=== PATIENT | male | born 2000 | race Caucasian/White ===

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

== ENCOUNTER 2018-01-18 19:50 | Emergency (ER) | payer BC ==
--- NOTE | 2018-01-18 20:27 | RAD ---
HISTORY: Right-sided chest pain, history of pneumothorax COMPARISONS: June 02, 2016 VIEWS: 4: Frontal dual-energy and lateral views of the chest. FINDINGS: CARDIOMEDIASTINAL SILHOUETTE: The cardiomediastinal silhouette is normal. TETE: The tete are normal. PLEURA: The costophrenic angles are sharp. No pleural abnormalities are noted. LUNG PARENCHYMA: There is postsurgical change to the upper lungs bilaterally. ABDOMEN: The upper abdomen is clear. There is no subphrenic gas. BONES AND SOFT TISSUES: No bone or soft tissue abnormalities are noted. OTHER: None. IMPRESSION: NO ACTIVE CARDIOPULMONARY DISEASE.
[2018-01-18 20:28] VITALS: BP 117/55
--- NOTE | 2018-01-18 21:47 | UC ---
General HPI - HPI Summary HPI Summary: 17 yo h/o sponataneous PTX 1.5 yrs ago ( 100% on left and 25% on right) p/w sharp right upper chest pain while cooking today w/o SPB, but pain similar to the pain of previous PTX - History of Current Complaint Chief Complaint: UCChestPain Stated Complaint: UPPER LUNG PAIN Time Seen by Provider: 01/18/18 21:04 Hx Obtained From: Patient Onset/Duration: Sudden Onset Onset Severity: Moderate Current Severity: Mild Pain Intensity: 3 - Allergy/Home Medications Allergies/Adverse Reactions: Allergies Allergy/AdvReac Type Severity Reaction Status Date / Time No Known Allergies Allergy Verified 01/18/18 20:29 Home Medications: Home Medications Isotretinoin [Myorisan] 01/18/18 [History] Isotretinoin [Myorisan] 1 tab PO BID 01/18/18 [History Confirmed 01/18/18] PMH/Surg Hx/FS Hx/Imm Hx - Additional Past Medical History Additional PMH: PTX Previously Healthy: Yes - Surgical History Surgical History: Yes Surgery Procedure, Year, and Place: FX left humerus AT AGE 2 - Family History Known Family History: Negative: Hypertension, Diabetes - Social History Alcohol Use: None Substance Use Type: None Smoking Status (MU): Never Smoked Tobacco - Immunization History Most Recent Influenza Vaccination: unknown - did not recieve this flu season Most Recent Pneumonia Vaccination: never Vaccination Up to Date: Yes Review of Systems Constitutional: Negative Skin: Negative Eyes: Negative ENT: Negative Respiratory: Other - right upper chest pain Cardiovascular: Negative Gastrointestinal: Negative Genitourinary: Negative Motor: Negative Neurovascular: Negative Musculoskeletal: Negative Neurological: Negative Psychological: Negative All Other Systems Reviewed And Are Negative: Yes Physical Exam Triage Information Reviewed: Yes Appearance: Well-Appearing Vital Signs: Initial Vital Signs Temp 37.4 C 01/18/18 20:23 Pulse 97 01/18/18 20:23 Resp 16 01/18/18 20:23 BP 117/55 01/18/18 20:23 Pulse Ox 99 01/18/18 20:23 Eye Exam: Normal ENT Exam: Normal Dental Exam: Normal Neck exam: Normal Neck: Positive: 1 Respiratory Exam: Normal Respiratory: Positive: Lungs clear - and equal B/L Cardiovascular Exam: Normal Abdominal Exam: Normal Musculoskeletal Exam: Normal Neurological Exam: Normal Psychological Exam: Normal Skin Exam: Normal Course/Dx - Course Course Of Treatment: CXR neg for PTX, advised pulm consult and to r/o blebs and other occult causes of PTX, if pain persists,advised CT chest - Differential Dx - Multi-Symptom Provider Diagnoses: right upper chest pain Discharge - Discharge Plan Condition: Stable Disposition: HOME Patient Education Materials: Spontaneous Pneumothorax (ED) Referrals: Sony Vasquez MD [Primary Care Provider] - Additional Instructions: please follow up with a unscrambler and if pain persists go to ER for further evaluation
== END 2018-01-18 21:45 | disposition home or self-care (01) ==
LOC: UCEAST 19:50
DX: R07.89 Other chest pain (principal)
CPT/HCPCS: 71046; 99211; G0463

== ENCOUNTER 2019-01-05 17:59 | Emergency (ER) | payer BC ==
[2019-01-05 18:11] VITALS: BP 109/60
--- NOTE | 2019-01-05 18:13 | UC ---
Abdominal Pain Male HPI - HPI Summary HPI Summary: 18-year-old male comes to clinic with a chief complaint of abdominal pain. Started yesterday. It has gotten worse as the day goes on. Pain primarily is epigastric and periumbilical. Patient's nauseous he does not feel like eating. He did vomit one time today. Pain is worse when he stands up and moves around. The pain is constant it's about a 4 out of 10 now. Pain also gets worse with sitting when he stands up. He reports he had a normal bowel movement this morning. No blood in the stool. No diarrhea. Reports normal urination. He has had some chills. No prior abdominal surgeries. - History of Current Complaint Chief Complaint: UCGI Stated Complaint: DIZZINESS AND VOMITING Time Seen by Provider: 01/05/19 18:00 Pain Intensity: 4 - Allergies/Home Medications Allergies/Adverse Reactions: Allergies Allergy/AdvReac Type Severity Reaction Status Date / Time No Known Allergies Allergy Verified 01/05/19 18:11 Home Medications: Home Medications NK [No Home Medications Reported] 01/05/19 [History Confirmed 01/05/19] PMH/Surg Hx/FS Hx/Imm Hx Previously Healthy: Yes - PNEUMOTHORAX X 2 - Surgical History Surgical History: Yes Surgery Procedure, Year, and Place: FX left humerus AT AGE 2 - Family History Known Family History: Negative: Hypertension, Diabetes - Social History Alcohol Use: None Substance Use Type: None Smoking Status (MU): Never Smoked Tobacco - Immunization History Most Recent Influenza Vaccination: unknown - did not recieve this flu season Most Recent Pneumonia Vaccination: never Vaccination Up to Date: Yes Review of Systems All Other Systems Reviewed And Are Negative: Yes Constitutional: Positive: Chills, Other - LIGHTHEADEDNESS Skin: Positive: Negative Eyes: Positive: Negative ENT: Positive: Negative Respiratory: Positive: Negative Cardiovascular: Positive: Negative Gastrointestinal: Positive: Abdominal Pain, Vomiting, Nausea Genitourinary: Positive: Negative Motor: Positive: Negative Neurovascular: Positive: Negative Musculoskeletal: Positive: Negative Neurological: Positive: Negative Psychological: Positive: Negative Is Patient Immunocompromised?: No Physical Exam Triage Information Reviewed: Yes Appearance: Well-Nourished, Ill-Appearing - MILD, Pain Distress - MILD Vital Signs: Initial Vital Signs Temp 99 F 01/05/19 18:01 Pulse 115 01/05/19 18:01 Resp 14 01/05/19 18:01 BP 109/60 01/05/19 18:01 Pulse Ox 96 01/05/19 18:01 Vital Signs Reviewed: Yes Eye Exam: Normal Eyes: Positive: Conjunctiva Clear ENT: Positive: Pharynx normal Neck exam: Normal Neck: Positive: Supple Respiratory: Positive: Lungs clear, Normal breath sounds, No respiratory distress Cardiovascular: Positive: Tachycardia Abdomen Description: Positive: Other: - TENDER TO PALPATION MIDLINE JUST ABOVE THE UMBILICUS Bowel Sounds: Positive: Present Musculoskeletal Exam: Normal Musculoskeletal: Positive: Strength Intact, ROM Intact Neurological Exam: Normal Neurological: Positive: Alert, Muscle Tone Normal Psychological Exam: Normal Psychological: Positive: Normal Response To Family, Age Appropriate Behavior Skin Exam: Normal Diagnostics - EKG Cardiac Rate: Tachycardia - AT 182 Cardiac Rhythm: Sinus: Normal - 109BPM EKG Comparison: Other - RBBB, EARLY REPOL Abd Pain Male Course/Dx - Course Course Of Treatment: Due to the persistence of the abdominal pain it's severity and the near syncopal episodes I recommended further evaluation emergency department to the patient and his mother. They preferred to go by POV. - Differential Dx/Clinical Impression Provider Diagnosis: Abdominal pain, Near syncope Discharge - Sign-Out/Discharge Documenting (check all that apply): Patient Departure All imaging exams completed and their final reports reviewed: No Studies - Discharge Plan Condition: Stable Disposition: HOME-RECOMMEND TO ED Referrals: Sony Vasquez MD [Primary Care Provider] - Additional Instructions: GO DIRECTLY TO THE EMERGENCY DEPARTMENT FOR FURTHER EVALUATION OF YOUR ABDOMINAL PAIN AND NEAR SYNCOPE. - Billing Disposition and Condition Condition: STABLE Disposition: Home-Recommend to ED
== END 2019-01-05 18:25 | disposition home health service (06) ==
LOC: UCEAST 17:59
DX: R55 Syncope and collapse (principal); R10.33 Periumbilical pain; R10.13 Epigastric pain; R11.2 Nausea with vomiting, unspecified
CPT/HCPCS: 99212; G0463

== ENCOUNTER 2019-01-05 18:36 | Emergency (ER) | payer BC ==
[2019-01-05] MEDS ORDERED: NS 0.9% 1000 ML** 1,000 ML IV ONE (19:05)
--- NOTE | 2019-01-05 19:06 | ED ---
Abdominal Pain/Male - HPI Summary HPI Summary: The patient is a 18 y/o M presenting to [facility] accompanied by mother with a chief complaint of epigastric pain starting last night and persisting into today. He states that he felt okay yesterday, but then had sudden onset discomfort that has been constantly dull with intermittent episodes of severity , although his current pain is rated 3-4/10. During the day today, he has been mostly lying in bed because when he stands up, especially for a long period of time, he becomes dizzy. There are no other factors that aggravate the pain. He additionally reports that he has had a decreased appetite with nausea and has had one episode of vomiting that seemed to somewhat alleviate his pain. He denies diarrhea or changes to BM (normal today). Per mother, the patient had orthostatic hypotension and tachycardia; they also presented to Urgent Care, who suggested that the patient visits the ED for a workup. On his way here, he states that he was felt okay on the drive. No abd surgery. Hx of mechanical thoradesis in 2014. No current medications, but recently ended prescription for accutane 6 months ago. - History of Current Complaint Chief Complaint: EDAbdPain Stated Complaint: DIZZINESS/ABD PAIN Time Seen by Provider: 01/05/19 18:54 Hx Obtained From: Patient Onset/Duration: Sudden Onset, Lasting Hours - starting last night and persisting into today, Still Present Timing: Constant - dull, Intermittent - severe epsiodes, Lasting Hours Severity Initially: Moderate Severity Currently: Moderate Pain Intensity: 4 Pain Scale Used: 0-10 Numeric Location: Epigastric Radiates: No Character: Other: - discomfort Aggravating Factor(s): Other: - standing up causes dizziness Alleviating Factor(s): Vomiting Associated Signs And Symptoms: Positive: Nausea, Vomiting - one episode, Other - POSITIVE: decreased appetite, dizziness; NEGATIVE: changes in BM. Negative: Diarrhea - Allergies/Home Medications Allergies/Adverse Reactions: Allergies Allergy/AdvReac Type Severity Reaction Status Date / Time No Known Allergies Allergy Verified 01/05/19 18:48 PMH/Surg Hx/FS Hx/Imm Hx Endocrine/Hematology History: Denies: Hx Diabetes, Hx Thyroid Disease Cardiovascular History: Denies: Hx Congestive Heart Failure, Hx Hypertension, Hx Pacemaker/ICD Comment Only: Other Cardiovascular Problems/Disorders - MURMUR Respiratory History: Denies: Hx Asthma, Hx Chronic Obstructive Pulmonary Disease (COPD), Other Respiratory Problems/Disorders GI History: Denies: Hx Ulcer Sensory History: Reports: Hx Contacts or Glasses Denies: Hx Deafness Opthamlomology History: Reports: Hx Contacts or Glasses Denies: Hx Legally Blind EENT History: Denies: Hx Deafness - Surgical History Surgery Procedure, Year, and Place: FX left humerus AT AGE 2 Hx Anesthesia Reactions: No Infectious Disease History: No Infectious Disease History: Denies: Hx Hepatitis, Hx Human Immunodeficiency Virus (HIV), Traveled Outside the [place] in Last 30 Days - Family History Known Family History: Negative: Hypertension, Diabetes - Social History Occupation: Student Alcohol Use: None Substance Use Type: Reports: None Hx Tobacco Use: No Smoking Status (MU): Never Smoked Tobacco Review of Systems Positive: Abdominal Pain - dull constant pain but intermittently severe in the epigastric region, Vomiting - one episode, Nausea, Other - POSITIVE: decreased appetite; NEGATIVE: changes in BM. Negative: Diarrhea Neurological: Other - dizziness All Other Systems Reviewed And Are Negative: Yes Physical Exam - Summary Physical Exam Summary: Appearance: Well-appearing, Well-nourished, lying in bed comfortably Skin: Warm, dry, no obvious rash Eyes: sclera anicteric, no conjunctival pallor ENT: mucous membranes moist, pharynx appears normal Neck: Supple, nontender Respiratory: Clear to auscultation, no signs of respiratory distress Cardiovascular: Normal S1, S2. No murmurs. Normal distal pulses in tibial and radial bilaterally. Abdomen: Soft, nontender, normal active bowel sounds present Musculoskeletal: Normal, Strength/ROM Intact Neurological: A&Ox3, awake and alert, mentation is normal, speech is fluent and appropriate Psychiatric: affect is normal, does not appear anxious or depressed Triage Information Reviewed: Yes Vital Signs On Initial Exam: Initial Vitals Temp Pulse Resp BP Pulse Ox 99 F 116 16 108/71 98 01/05/19 18:43 01/05/19 18:43 01/05/19 18:43 01/05/19 18:43 01/05/19 18:43 Vital Signs Reviewed: Yes Diagnostics - Vital Signs Vital Signs Temp Pulse Resp BP Pulse Ox 01/05/19 18:43 99 F 116 16 108/71 98 - Laboratory Result Diagrams: 01/05/19 19:14 01/05/19 19:14 Lab Statement: Any lab studies that have been ordered have been reviewed, and results considered in the medical decision making process. - Radiology CXR Radiology Interpretation Completed By: Radiologist Summary of Radiographic Findings: No acute pathology. ED physician has reviewed this report. - CT Abd/Pel CT CT Interpretation Completed By: Radiologist Summary of CT Findings: 1. Stable mild prominence of the right renal pelvis. No visible renal or ureteral calculi at and no obvious inflammatory change of the kidneys. 2. The urinary bladder is unremarkable. 3. No other acute CT pathology. ED physician has reviewed this report. Re-Evaluation - Re-Evaluation First Eval Re-Evaluation Time: 20:00 Change: Unchanged Comment: I spoke with the patient and his mother concerning UA results. Second Eval Re-Evaluation Time: 22:40 Change: Improved Comment: I spoke with the patient concerning CXR and CT results. His pain has improved. We discussed discharge home. Abdominal Pain Male Course/Dx - Course Course Of Treatment: The patient is a 18 y/o M presenting to [facility] accompanied by mother with a chief complaint of epigastric pain starting last night and persisting into today. He states that he felt okay yesterday, but then had sudden onset discomfort that has been constantly dull with intermittent episodes of severity. He additionally reports dizziness, decreased appetite, nausea, and one episode of vomiting that seemed to somewhat alleviate his pain. He denies diarrhea or changes to BM. No abd surgery. Upon physical exam, the patient exhibited no acute abnormalities. In the ED course, the patient was administered Ns and Omnipaque contrast. Bloodwork shows elevated CRP and decreased lipase. UA reveals blood and bacteria. CXR shows no acute process. Abd /Pel CT is negative. He is diagnosed with abdominal pain. He will be discharged home with follow up with PCP as needed. He agrees with this plan and understands the need for return to the ED for any new or worsening symptoms. - Diagnoses Provider Diagnoses: Acute abdominal pain Discharge - Sign-Out/Discharge Documenting (check all that apply): Patient Departure - Patient will be discharged home. Patient Received Moderate/Deep Sedation with Procedure: No - Discharge Plan Condition: Good Disposition: HOME Patient Education Materials: Acute Abdominal Pain (ED) Referrals: Sony Vasquez MD [Primary Care Provider] - If Needed Additional Instructions: Follow up with primary care physician as needed. Return to the emergency department for any new or worsening symptoms. - Billing Disposition and Condition Condition: GOOD Disposition: Home - Attestation Statements Document Initiated by Dago: Yes Documenting Yuryibe: Olivia Hanson Provider For Whom Dago is Documenting (Include Credential): Dr. Hernan Rodas MD Scribe Attestation: Olivia Juarez scribed for Dr. Hernan Rodas MD on 01/06/19 at 0502. Scribe Documentation Reviewed: Yes Provider Attestation: The documentation as recorded by the Olivia kent accurately reflects the service I personally performed and the decisions made by me, Dr. Hernan Rodas MD Status of Scribe Document: Viewed
[2019-01-05 19:22] LABS: ABS Basophils 0 10^3/ul (0-0.2); ABS Eosinophils 0 10^3/ul (0-0.6); ABS Lymphocytes 0.4 10^3/ul (1.0-4.8); ABS Monocytes 0.6 10^3/ul (0-0.8); ABS Neutrophils 6.5 10^3/ul (1.5-7.7); ABS Nucleated RBC 0 10^3/ul; Eosinophil % 0.3 %; Hematocrit 49 % (42-52); Hemoglobin 16.8 g/dl (14.0-18.0); Lymphocyte % 5.5 %; Mean Corpuscular HGB Conc 35 g/dl (31-36); Mean Corpuscular Hemoglobin 32 pg (27-31); Mean Corpuscular Volume 91 fL (80-94); Mean Platelet Volume 7.3 fL (7.4-10.4); Nucleated Red Blood Cells % 0.1; Platelet Count 191 10^3/ul (150-450); Red Blood Count 5.36 10^6/ul (4.00-5.40); Red Cell Distribution Width 13 % (10.5-15); White Blood Count 7.5 10^3/ul (3.5-10.8)
[2019-01-05 19:33] LABS: Urine Appearance Clear; Urine Bacteria 1+ (Absent); Urine Bilirubin Negative (Negative); Urine Blood 2+ (Negative); Urine Color Yellow; Urine Glucose Negative (Negative); Urine Ketones Negative (Negative); Urine Nitrite Negative (Negative); Urine Protein Negative (Negative); Urine Red Blood Cell Trace(0-2/hpf) (Absent); Urine Specific Gravity 1.008 (1.010-1.030); Urine Squamous Epithelial Cell Present (Absent); Urine Urobilinogen Negative (Negative); Urine White Blood Cell Trace(0-5/hpf) (Absent)
[2019-01-05 19:43] LABS: ALT 13 U/L (7-52); AST 19 U/L (13-39); Albumin 4.6 g/dL (3.2-5.2); Albumin/Globulin Ratio 1.6 (1-3); Alkaline Phosphatase 39 U/L (34-104); Anion Gap 7 mmol/L (2-11); BUN/Creatinine Ratio 15.8 (8-20); Blood Urea Nitrogen 15 mg/dL (6-24); C Reactive Protein 31.17 mg/L (<8.01); CO2 Carbon Dioxide 26 mmol/L (22-32); Calcium 9.2 mg/dL (8.6-10.3); Chloride 101 mmol/L (101-111); EGFR African American 122.3 (>60); EGFR Non-African American 101.1 (>60); Globulin 2.8 g/dL (2-4); Glucose 119 mg/dL (70-100); Potassium 3.8 mmol/L (3.5-5.0); Sodium 134 mmol/L (135-145); Total Protein 7.4 g/dL (6.4-8.9)
[2019-01-05] MEDS ORDERED: Iohexol 300* (CONTRAST) 10 ML SDV IV ONE (21:28)
[2019-01-05 22:51] VITALS: BP 107/53
== END 2019-01-05 22:50 | disposition home or self-care (01) ==
LOC: ED 18:36
DX: R10.13 Epigastric pain (principal); R42 Dizziness and giddiness; R11.2 Nausea with vomiting, unspecified
CPT/HCPCS: 36415; 71046; 74177; 80053; 81003; 81015; 83690; 85025; 86140; 87086; 96360; 99282; Q9967